=== PATIENT | female | born 1950 | race Caucasian/White ===

== ENCOUNTER 2016-10-02 12:04 | Day surgery (SDC) | payer BC ==
--- NOTE | ~2016-10-02 | EGD ---
EGD REPORT [facility] [address] [id number] NAME: CATA DON : [id number] STATUS : REG [facility]#: [id number] AGE: 66 ADM/REG DATE : 10/02/16 MR#: [id number] REPORT SERV DATE: 10/02/16 DICTATED BY: NATHANIEL MA DATE: 10/02/16 REPORT STATUS : Draft [facility]ANS[facility]IBED BY: [facility] DATE: 10/02/16 [facility] Patient Name: Cata Don Date of : 1950 Attending MD: JOSE MA MD Procedure Date No Time: 10/02/2016 Procedure: Colonoscopy Indications: Screening for colorectal malignant neoplasm, This is the patient's first colonoscopy Referring MD: Venus Romero Medicines: See the Anesthesia note for documentation of the administered medications Complications: No immediate complications. Estimated blood loss: None. Procedure: Pre-Anesthesia Assessment: - ASA Grade Assessment: II - A patient with mild systemic disease. - Prior to the procedure, a History and Physical was performed, and patient medications and allergies were reviewed. The patient's tolerance of previous anesthesia was also reviewed. The risks and benefits of the procedure and the sedation options and risks were discussed with the patient. All questions were answered, and informed consent was obtained. Prior Anticoagulants: The patient has taken no previous anticoagulant or antiplatelet agents. After reviewing the risks and benefits, the patient was deemed in satisfactory condition to undergo the procedure. After I obtained informed consent, the scope was passed under direct vision. Throughout the procedure, the patient's blood pressure, pulse, and oxygen saturations were monitored continuously. The PCF [id number] was introduced through the anus and advanced to the cecum, identified by appendiceal orifice and ileocecal valve. The ileocecal valve, appendiceal orifice and rectum were photographed. The entire colon was examined. The colonoscopy was performed without difficulty. The patient tolerated the procedure well. The quality of the bowel preparation was adequate. Findings: The perianal and digital rectal examinations were normal. A sessile polyp was found in the proximal transverse colon. The polyp was small in size. The polyp was removed with a cold snare. Resection and retrieval were complete. A sessile polyp was found at the hepatic flexure. The polyp was small in EGD REPORT [address] [id number] [place]. [address] NAME: CATA DON : [birth year] STATUS : REG [facility]#: [id number] AGE: 66 ADM/REG DATE : 10/02/16 MR#: [id number] REPORT SERV DATE: 10/02/16 DICTATED BY: NATHANIEL MA DATE: 10/02/16 REPORT STATUS : Draft [facility]IB[facility]: [facility] DATE: 10/02/16 size. The polyp was removed with a cold snare. Resection and retrieval were complete. Two sessile polyps were found in the mid transverse colon. The polyps were small in size. These polyps were removed with a cold snare. Resection and retrieval were complete. A pedunculated polyp was found at 15 cm proximal to the anus. The polyp was 25 mm in size. The polyp was removed with a hot snare. Resection and retrieval were complete. Area was successfully injected with 3 mL Spot (carbon black) for drug delivery. Non-bleeding internal hemorrhoids were found during retroflexion and were Grade I (internal hemorrhoids that do not prolapse). No other significant abnormalities were identified in a careful examination of the remainder of the colon. Impression: - One small polyp in the proximal transverse colon. Resected and retrieved. - One small polyp at the hepatic flexure. Resected and retrieved. - Two small polyps in the mid transverse colon. Resected and retrieved. - One 25 mm polyp at 15 cm proximal to the anus. Resected and retrieved. Injected. - Non-bleeding internal hemorrhoids. Recommendation: - Patient has a contact number available for emergencies. The signs and symptoms of potential delayed complications were discussed with the patient. Return to normal activities tomorrow. Written discharge instructions were provided to the patient. - Regular diet. - Discharge patient to home. - Continue present medications. - Await pathology results. - Repeat colonoscopy in 3 years for surveillance based on pathology results. - Discharge patient to home. Procedure Code(s): --- Professional --- 95407, Colonoscopy, flexible, proximal to splenic flexure; with removal of tumor(s), polyp(s), or other lesion(s) by snare technique 96772, Colonoscopy, flexible, proximal to splenic flexure; with directed submucosal injection(s), any substance Diagnosis Code(s): --- Professional --- D12.6, Benign neoplasm of colon, unspecified EGD REPORT [address] [address] NAME: CATA DON : [birth year] STATUS : REG [facility] PAT#: [id number] AGE: 66 ADM/REG DATE : 10/02/16 MR#: [id number] REPORT SERV DATE: 10/02/16 DICTATED BY: NATHANIEL MA DATE: 10/02/16 REPORT STATUS : Draft TRANSCRIBED BY: [employer] DATE: 10/02/16 D12.3, Benign neoplasm of transverse colon K64.0, First degree hemorrhoids Z12.11, Encounter for screening for malignant neoplasm of colon CPT copyright 2013 [employer]. All rights reserved. The codes documented in this report are preliminary and upon immigration specialist review may be revised to meet current compliance requirements. JOSE MA MD 10/02/2016 3:38 PM This report has been signed electronically. Number of Addenda: 0 Note Initiated On: 10/02/2016 3:03 PM Scope Withdrawal Time 0 hours 17 minutes 26 seconds [id number] [id number]
[~2016-10-02 12:04] MED LIST: C25 PO; CALTRAT600 PO; K500 PO; MULTIPLE VIT PO; MULTIVIT/MIN PO; PCET PO; SYN112 PO; VITC500 PO
== END 2016-10-02 23:59 | disposition home or self-care (01) ==
LOC: DMU 12:04
PROVIDERS: Internal Medicine Gastroenterology
PROC: 0DBL8ZZ Excision of Transverse Colon, Via Natural or Artificial Opening Endoscopic (ICD-10-PCS; 2016-10-02)
PROC: 3E0H8KZ Introduction of Other Diagnostic Substance into Lower GI, Via Natural or Artificial Opening Endoscopic (ICD-10-PCS; 2016-10-02)
PROC: 0DBK8ZZ Excision of Ascending Colon, Via Natural or Artificial Opening Endoscopic (ICD-10-PCS; principal; 2016-10-02 14:00)
PROC: 0DBE8ZZ Excision of Large Intestine, Via Natural or Artificial Opening Endoscopic (ICD-10-PCS; 2016-10-02 14:00)
DX: Z12.11 Encounter for screening for malignant neoplasm of colon (principal); D12.3 Benign neoplasm of transverse colon; D12.6 Benign neoplasm of colon, unspecified; K64.0 First degree hemorrhoids; J44.9 Chronic obstructive pulmonary disease, unspecified; E03.9 Hypothyroidism, unspecified
CPT/HCPCS: 88305